=== PATIENT | female | born 1975 | race Caucasian/White ===

== ENCOUNTER 2019-03-31 16:21 | Observation (INO) | payer SELFPAY ==
[2019-03-31] MEDS ORDERED: PROMETHAZINE HCL 12.5 MG in 0.9 % SODIUM CHLORIDE 100ML 100 ML IVPB ONE (17:12)
[2019-03-31] MEDS ORDERED: LABETALOL HCL 5MG/ML, 20ML VIAL IV ONE ×2 (17:15→18:02)
[2019-03-31 17:30] LABS: ABSOLUTE NEUTROPHIL COUNT 4.21; BASO % 0.3 % (0-6); EOS % 0.7 % (0-6); GRAN % 59.9 % (47-80); HEMATOCRIT 44.8 % (35.0-47.0); LYMPH % 33.4 % (16-45); MEAN CELL VOLUME 98.9 fl (81-97); MEAN CORPUSCULAR HEMOGLOBIN 33.1 pg (27-33); MEAN CORPUSCULAR HGB CONC 33.5 g/dl (32-36); MONO % 5.7 % (0-9); PLATELET COUNT 243 K/uL (130-400); RED BLOOD COUNT 4.53 M/uL (3.80-5.40); RED CELL DISTRIBUTION WIDTH 12.9 % (11.5-14.5)
[2019-03-31 17:43] LABS: BLOOD UREA NITROGEN 5 mg/dL (6-20); CREATININE 0.6 mg/dL (0.5-0.9); EST GLOMERULAR FILTRATION RATE > 60 mL/min
[2019-03-31 17:46] LABS: GLUCOSE,RANDOM 84 mg/dL (74-109)
--- NOTE | 2019-03-31 18:28 | Emergency Department Record ---
History of Present Illness - General Chief Complaint: Dizziness Stated Complaint: VERTIGO Time Seen by Provider: 03/31/19 17:02 Source: Patient Mode of Arrival: Ambulatory Limitations: No limitations - History of Present Illness Initial Comments: pt came in for extreme vertigo and hypertension. she states [facility] and bp med but the meclizine is not working. she states she has no family dr because she has no insurance. she states she has had htn since she was 23. she has been vomiting up her meds because of her vertigo MD Complaint: Dizziness, Other Onset/Timin -: Week(s) Timing: Gradual onset Description: Difficulty walking, Lightheadedness, Nausea, "Room spinning", Sense of movement History of Same: Yes History of Trauma: No Severity: Severe Improves With: Nothing Worsens With: Movement, Position Associated Symptoms: Denies other symptoms - [place] Coma Scale Eye Response: (4) Open spontaneously Motor Response: (6) Obeys commands Verbal Response: (5) Oriented [place] Total: 15 - Symptoms of Stroke Symptoms of stroke: Dizziness, Vertigo - Related Data Home Medications Medication Instructions Recorded Confirmed Last Taken Amlodipine Besylate [Norvasc] 2.5 mg PO QHS 03/31/19 03/31/19 03/30/19 Atenolol 25 mg PO BID 03/31/19 03/31/19 03/31/19 Meclizine HCl [Antivert] 25 mg PO ASDIR 03/31/19 03/31/19 03/30/19 Allergies Allergy/AdvReac Type Severity Reaction Status Date / Time No Known Drug Allergies Allergy Verified 03/31/19 16:42 Travel Screening - Travel/Exposure Within Last 30 Days Have you traveled within the last 30 days?: No Review of Systems Reviewed: No additional complaints except as noted below Constitutional: Reports: As per HPI. Denies: Chills, Fever, Malaise, Night sweats, Weakness, Weight change Eyes: Reports: As per HPI. Denies: Eye discharge, Eye pain, Photophobia, Vision change ENT: Reports: As per HPI. Denies: Congestion, Dental pain, Ear pain, Epistaxis, Hearing loss, Throat pain Respiratory: Reports: As per HPI. Denies: Cough, Dyspnea, Hemoptysis, Stridor, Wheezes Cardiovascular: Reports: As per HPI. Denies: Arrhythmia, Chest pain, Dyspnea on exertion, Edema, Murmurs, Orthopnea, Palpitations, Paroxysmal nocturnal dyspnea, Rheumatic Fever, Syncope Endocrine: Reports: As per HPI. Denies: Fatigue, Heat or cold intolerance, Polydipsia, Polyuria Gastrointestinal: Reports: As per HPI. Denies: Abdominal pain, Constipation, Diarrhea, Hematemesis, Hematochezia, Melena, Nausea, Vomiting Genitourinary: Reports: As per HPI. Denies: Abnormal menses, Discharge, Dyspareunia, Dysuria, Frequency, Hematuria, Incontinence, Retention, Urgency Musculoskeletal: Reports: As per HPI. Denies: Arthralgia, Back pain, Gout, Joint swelling, Myalgia, Neck pain Skin: Reports: As per HPI. Denies: Bruising, Change in color, Change in hair/nails, Lesions, Pruritus, Rash Neurological: Reports: As per HPI, Vertigo. Denies: Abnormal gait, Confusion, Headache, Numbness, Paresthesias, Seizure, Tingling, Tremors, Weakness Psychiatric: Reports: As per HPI. Denies: Anxiety, Auditory hallucinations, Depression, Homicidal thoughts, Suicidal thoughts, Visual hallucinations Hematological/Lymphatic: Reports: As per HPI. Denies: Anemia, Blood Clots, Easy bleeding, Easy bruising, Swollen glands Past Medical History - SOCIAL HISTORY Smoking Status: Light tobacco smoker (<10/day) Alcohol Use Comment: daily-couple of drinks Drug Use: None - RESPIRATORY Hx Respiratory Disorders: No - CARDIOVASCULAR Hx Cardio Disorders: Yes Hx Hypertension: Yes Comment:: deviated septum, slightly enlarged heart, mitral valve prolapse - NEURO Hx Neuro Disorders: No - GI Hx GI Disorders: Yes Comment:: IBS - Hx Genitourinary Disorders: No - ENDOCRINE Hx Endocrine Disorders: No - MUSCULOSKELETAL Hx Musculoskeletal Disorders: No - PSYCH Hx Psych Problems: Yes Hx Anxiety: Yes (severe anxiety disorder) - HEMATOLOGY/ONCOLOGY Hx Hematology/Oncology Disorders: No Family Medical History Any Significant Family History?: No Physical Exam - General General Appearance: Alert, Oriented x3, Cooperative, Moderate distress - Head Head exam: Normal inspection - Eye Eye exam: PERRL, EOMI, Nystagmus Pupils: Normal accommodation - ENT ENT exam: Normal exam, Mucous membranes moist, Normal external ear exam, Normal orophraynx Ear exam: Normal external inspection. negative: External canal tenderness Nasal Exam: Normal inspection. negative: Discharge, Sinus tenderness Mouth exam: Normal external inspection, Tongue normal Teeth exam: Normal inspection. negative: Dental caries Throat exam: Normal inspection. negative: Tonsillar erythema, Tonsillar exudate - Neck Neck exam: Normal inspection, Full ROM. negative: Tenderness - Respiratory Respiratory exam: Normal lung sounds bilaterally. negative: Respiratory dis tress - Cardiovascular Cardiovascular Exam: Normal rhythm, Normal heart sounds, Tachycardia - GI/Abdominal GI/Abdominal exam: Soft, Normal bowel sounds. negative: Tenderness - Rectal Rectal exam: Deferred - exam: Deferred - Extremities Extremities exam: Normal inspection, Full ROM, Normal capillary refill. negative: Tenderness - Back Back exam: Reports: Normal inspection, Full ROM. Denies: Muscle spasm, Rash noted, Tenderness - Neurological Neurological exam: Alert, CN II-XII intact, Normal gait, Oriented X3 - Psychiatric Psychiatric exam: Normal affect, Normal mood - Skin Skin exam: Dry, Intact, Normal color, Warm Course Vital Signs 03/31/19 03/31/19 03/31/19 16:38 17:36 17:59 Temperature 98.1 F Pulse Rate 123 H Pulse Rate [ 95 H 90 Pulse Ox Probe] Respiratory 18 20 18 Rate Blood Pressure 242/162 Blood Pressure 217/150 195/132 [Left Arm] Pulse Ox 97 96 99 - Reevaluation(s) Reevaluation #1: 03/31/19 18:57 pts vertigo is better however her bp conts to be high. Reevaluation #2: 03/31/19 19:06 helio is putting in the hypertension meds. Medical Decision Making - Lab Data Result diagrams: 03/31/19 16:40 03/31/19 16:40 Lab Results 03/31/19 03/31/19 Range/Units 16:40 16:40 WBC 7.0 (4.2-12.2) K/uL RBC 4.53 (3.80-5.40) M/uL Hgb 15.0 (11.6-16.0) gm/dl Hct 44.8 (35.0-47.0) % MCV 98.9 H (81-97) fl MCH 33.1 H (27-33) pg MCHC 33.5 (32-36) g/dl RDW 12.9 (11.5-14.5) % Plt Count 243 (130-400) K/uL MPV 9.0 (7.4-10.4) fl Gran % 59.9 (47-80) % Lymphocytes % 33.4 (16-45) % Monocytes % 5.7 (0-9) % Eosinophils % 0.7 (0-6) % Basophils % 0.3 (0-6) % Absolute Neutrophils 4.21 Sodium 134 L (136-145) mmol/L Potassium 3.5 (3.4-4.5) mmol/L Chloride 90 L (98-107) mmol/L Carbon Dioxide 23.0 (22-29) mmol/L Anion Gap 21.0 H (7-16) BUN 5 L (6-20) mg/dL Creatinine 0.6 (0.5-0.9) mg/dL Estimated GFR > 60 mL/min Random Glucose 84 (74-109) mg/dL Calcium 9.9 (8.6-10.0) mg/dL Disposition Disposition: Admit Clinical Impression: Hypertensive urgency Disposition: Still a Patient at [facility] Decision to Admit: Admit from ER Decision to Admit Date: 03/31/19 Decision to Admit Time: 18:59 Forms: Patient Portal Access Quality - Quality Measures Quality Measures: N/A - Blood Pressure Screening Does Patient Have Any of the Following: No Blood Pressure Classification: Hypertensive Reading Systolic Measurement: 242 Diastolic Measurement: 162 Screening for High Blood Pressure: < First Hypertensive BP, F/U Documented > [G8950] First Hypertensive Follow-up Interventions: Referral to alternative/primary care provider.
--- NOTE | 2019-03-31 18:29 | Emergency Department Record ---
History of Present Illness - General Chief Complaint: Dizziness Stated Complaint: VERTIGO Time Seen by Provider: 03/31/19 17:02 Mode of Arrival: Ambulatory - History of Present Illness Onset/Timin -: Week(s) Timing: Gradual onset Description: Difficulty walking, Lightheadedness, Nausea, "Room spinning", Sense of movement History of Same: Yes History of Trauma: No Severity: Severe Improves With: Nothing Worsens With: Movement, Position Associated Symptoms: Denies other symptoms - [place] Coma Scale Eye Response: (4) Open spontaneously Motor Response: (6) Obeys commands Verbal Response: (5) Oriented [place] Total: 15 - Related Data Home Medications Medication Instructions Recorded Confirmed Last Taken Amlodipine Besylate [Norvasc] 2.5 mg PO QHS 03/31/19 03/31/19 03/30/19 Atenolol 25 mg PO BID 03/31/19 03/31/19 03/31/19 Meclizine HCl [Antivert] 25 mg PO ASDIR 03/31/19 03/31/19 03/30/19 Allergies Allergy/AdvReac Type Severity Reaction Status Date / Time No Known Drug Allergies Allergy Verified 03/31/19 16:42 Travel Screening - Travel/Exposure Within Last 30 Days Have you traveled within the last 30 days?: No Past Medical History - SOCIAL HISTORY Smoking Status: Light tobacco smoker (<10/day) Alcohol Use Comment: daily-couple of drinks Drug Use: None - RESPIRATORY Hx Respiratory Disorders: No - CARDIOVASCULAR Hx Cardio Disorders: Yes Hx Hypertension: Yes Comment:: deviated septum, slightly enlarged heart, mitral valve prolapse - NEURO Hx Neuro Disorders: No - GI Hx GI Disorders: Yes Comment:: IBS - Hx Genitourinary Disorders: No - ENDOCRINE Hx Endocrine Disorders: No - MUSCULOSKELETAL Hx Musculoskeletal Disorders: No - PSYCH Hx Psych Problems: Yes Hx Anxiety: Yes (severe anxiety disorder) - HEMATOLOGY/ONCOLOGY Hx Hematology/Oncology Disorders: No Family Medical History Any Significant Family History?: No Course Vital Signs 03/31/19 03/31/19 03/31/19 16:38 17:36 17:59 Temperature 98.1 F Pulse Rate 123 H Pulse Rate [ 95 H 90 Pulse Ox Probe] Respiratory 18 20 18 Rate Blood Pressure 242/162 Blood Pressure 217/150 195/132 [Left Arm] Pulse Ox 97 96 99 Medical Decision Making - Lab Data Result diagrams: 03/31/19 16:40 03/31/19 16:40 Lab Results 03/31/19 03/31/19 Range/Units 16:40 16:40 WBC 7.0 (4.2-12.2) K/uL RBC 4.53 (3.80-5.40) M/uL Hgb 15.0 (11.6-16.0) gm/dl Hct 44.8 (35.0-47.0) % MCV 98.9 H (81-97) fl MCH 33.1 H (27-33) pg MCHC 33.5 (32-36) g/dl RDW 12.9 (11.5-14.5) % Plt Count 243 (130-400) K/uL MPV 9.0 (7.4-10.4) fl Gran % 59.9 (47-80) % Lymphocytes % 33.4 (16-45) % Monocytes % 5.7 (0-9) % Eosinophils % 0.7 (0-6) % Basophils % 0.3 (0-6) % Absolute Neutrophils 4.21 Sodium 134 L (136-145) mmol/L Potassium 3.5 (3.4-4.5) mmol/L Chloride 90 L (98-107) mmol/L Carbon Dioxide 23.0 (22-29) mmol/L Anion Gap 21.0 H (7-16) BUN 5 L (6-20) mg/dL Creatinine 0.6 (0.5-0.9) mg/dL Estimated GFR > 60 mL/min Random Glucose 84 (74-109) mg/dL Calcium 9.9 (8.6-10.0) mg/dL Disposition Forms: Patient Portal Access Quality - Blood Pressure Screening Does Patient Have Any of the Following: No Blood Pressure Classification: Hypertensive Reading Systolic Measurement: 242 Diastolic Measurement: 162
--- NOTE | 2019-03-31 18:48 | CT SCAN REPORT ---
EXAMINATION: CT Head without IV Contrast EXAM DATE: 03/31/2019 6:38 PM TECHNIQUE: Standard protocol CT images of the head were obtained without intravenous contrast. Aviles l and sagittal reconstructed images were created. INDICATION: vertigo w htn COMPARISON: None HAND DOMINANCE: Unknown. ENCOUNTER: Not applicable FINDINGS: 1. There is no intracranial mass, midline shift, extraaxial fluid collection or hemorrhage. 2. The ventricles, sulci and cisterns are normal. 3. There are no suspicious area of altered attenuation. 4. There is no fracture. 5. The visualized aspects of the orbits, paranasal sinuses, and mastoid air cells are normal. IMPRESSION: 1. No acute intracranial process evident. Dictated by: Ricky Hardin DO on 03/31/2019 6:44 PM. .
--- NOTE | 2019-03-31 18:52 | RADIOLOGY REPORT ---
EXAMINATION: Two View Chest Radiographs EXAM DATE: 03/31/2019 6:38 PM TECHNIQUE: Frontal and lateral views INDICATION: Acute vertigo. Recent falls. Hypertension COMPARISON: None FINDINGS: 2 views. Clear lungs. No visible pneumothorax or pleural fluid. The heart and mediastinum have a norm al appearance. IMPRESSION: Normal chest views. Dictated by: Wilber Devine MD on 03/31/2019 6:49 PM. .
[2019-03-31] MEDS ORDERED: PROMETHAZINE HCL 12.5 MG in 0.9 % SODIUM CHLORIDE 100ML 100 ML IVPB PRN (19:56)
[2019-03-31] MEDS ORDERED: MECLIZINE 25 MG TABLET PO SCH (19:56)
[2019-03-31] MEDS ORDERED: ACETAMINOPHEN 500 MG TABLET PO PRN (19:56)
[2019-03-31] MEDS ORDERED: HYDRALAZINE 20MG/ML VIAL IV PRN (20:46)
[2019-03-31] MEDS ORDERED: LABETALOL HCL 5MG/ML, 20ML VIAL IV PRN (20:47)
[2019-03-31] MEDS ORDERED: LISINOPRIL 5 MG TABLET PO SCH (21:00)
[2019-03-31] MEDS ORDERED: AMLODIPINE BESYLATE 5MG TAB PO SCH (22:00)
[2019-03-31] MEDS ORDERED: ATENOLOL 25 MG TABLET PO SCH (22:00)
[2019-04-01 04:28] LABS: AMPHETAMINE SCREEN URINE NOT DETECTED; BARBITURATE SCREEN URINE NOT DETECTED; BENZODIAZEPINE SCREEN URINE NOT DETECTED; COCAINE SCREEN URINE NOT DETECTED; METHADONE SCREEN URINE NOT DETECTED; METHAMPHETAMINE SCREEN NOT DETECTED; OPIATE SCREEN URINE NOT DETECTED; OXYCODONE SCREEN URINE NOT DETECTED; PHENCYCLIDINE SCREEN URINE NOT DETECTED; PROPOXYPHENE SCREEN URINE NOT DETECTED; THC SCREEN URINE NOT DETECTED; TRICYCLIC ANTIDEPRESSANT SCRN NOT DETECTED
[2019-04-01] MEDS ORDERED: AMLODIPINE BESYLATE 5MG TAB PO SCH (10:00)
[2019-04-01] MEDS ORDERED: LISINOPRIL 20 MG TABLET PO SCH (10:00)
--- NOTE | 2019-04-01 10:50 | Discharge Summary ---
Providers Discharge Summary Date: 04/01/19 Date of admission: 03/31/19 19:51 Attending physician: CHARITO PELAEZ Physical Exam - Vital Signs Vital Signs: Vital Signs - Last 24 Hrs Temp Pulse Pulse Resp BP BP BP 04/01/19 09:00 87 18 04/01/19 08:00 99.1 F 87 18 139/101 04/01/19 04:00 98.8 F 96 H 16 128/89 04/01/19 01:58 99 H 16 116/87 04/01/19 00:26 83 18 125/75 03/31/19 23:54 91 H 16 128/78 03/31/19 22:51 89 197/125 03/31/19 21:48 98 H 191/127 03/31/19 20:29 102 H 03/31/19 20:10 87 203/131 03/31/19 20:05 88 209/133 03/31/19 20:00 98.1 F 96 H 18 182/148 03/31/19 19:09 95 H 18 169/122 03/31/19 18:34 91 H 18 199/139 03/31/19 17:59 90 18 195/132 03/31/19 17:36 95 H 20 217/150 03/31/19 16:38 98.1 F 123 H 18 242/162 Pulse Ox 04/01/19 09:00 04/01/19 08:00 97 04/01/19 04:00 96 04/01/19 01:58 99 04/01/19 00:26 98 03/31/19 23:54 96 03/31/19 22:51 03/31/19 21:48 03/31/19 20:29 03/31/19 20:10 03/31/19 20:05 03/31/19 20:00 96 03/31/19 19:09 98 03/31/19 18:34 99 03/31/19 17:59 99 03/31/19 17:36 96 03/31/19 16:38 97 - General General Appearance: Alert, Oriented x3, Cooperative, No acute distress Limitations: No limitations - Head Head exam: Normal inspection - Eye Eye exam: PERRL, EOMI, Nystagmus Pupils: Normal accommodation - ENT ENT exam: Normal exam, Mucous membranes moist, Normal external ear exam, Normal orophraynx Ear exam: Normal external inspection. negative: External canal tenderness Nasal Exam: Normal inspection. negative: Discharge, Sinus tenderness Mouth exam: Normal external inspection, Tongue normal Teeth exam: Normal inspection. negative: Dental caries Throat exam: Normal inspection. negative: Tonsillar erythema, Tonsillar exudate - Neck Neck exam: Normal inspection, Full ROM. negative: Tenderness - Respiratory Respiratory exam: Normal lung sounds bilaterally. negative: Respiratory distress - Cardiovascular Cardiovascular Exam: Normal rhythm, Normal heart sounds, Tachycardia - GI/Abdominal GI/Abdominal exam: Soft, Normal bowel sounds. negative: Tenderness - Rectal Rectal exam: Deferred - exam: Deferred - Extremities Extremities exam: Normal inspection, Full ROM, Normal capillary refill. negative: Tenderness - Back Back exam: Reports: Normal inspection, Full ROM. Denies: Muscle spasm, Rash noted, Tenderness - Neurological Neurological exam: Alert, CN II-XII intact, Normal gait, Oriented X3 - Psychiatric Psychiatric exam: Normal affect, Normal mood - Skin Skin exam: Dry, Intact, Normal color, Warm Hospitalization - Hospitalization Admission Diagnosis: hypertensive urgency, malignant hypertension - Problem List/Discharge Diagnosis (1) Hypertensive urgency Status: Acute Base Code: I16.0 - HYPERTENSIVE URGENCY Comment: 04/01/19 -BP 242/162 --> 139/101, HR 123 --> 87 -Labetalol 10mg x 2, Hydralazine 10mg, Lisinopril 5mg and Atenolol 25mg overnight -Stop Norvasc, Continue Atenolol 25mg PO BID and Lisinopril 20mg daily, #90 day supplies sent to pharmacy to assist with cost -Case Management consulted to set pt up with PCP (2) Dizziness Status: Acute Base Code: R42 - DIZZINESS AND GIDDINESS Comment: 04/01/19 -Improved -Continue Meclizine (3) DVT prophylaxis Status: Acute Base Code: Z29.9 - ENCOUNTER FOR PROPHYLACTIC MEASURES, UNSPECIFIED Comment: 04/01/19 -Low Risk -Nursing to encourage ambulation, with assistance d/t fall risk (4) Full code status Status: Acute Base Code: Z78.9 - OTHER SPECIFIED HEALTH STATUS Comment: 04/01/19 -Full code (5) Unwitnessed fall Status: Acute Base Code: R29.6 - REPEATED FALLS Comment: 04/01/19 -Unwitnessed fall in the middle of the night -Reported hx of multiple falls -NeuroChecks normal - Hospitalization Course Disposition: Home, Self-Care Hospital Course: Angeline Jules is a 43 y.o. F who presented to the [facility] ED on 03/31/19 with c/o extreme vertigo and high blood pressure. Reported that she has a hx of vertigo but that meclizine is not working, as it usually does. Has a hx of HTN and gets medications from [facility] but has to "ration" them to make them last longer. Does not have a family doctor or health insurance. Has been unable to keep her BP meds down today d/t vomiting from vertigo. PMHx: HTN, tobacco use, daily alcohol use, IBS, anxiety No PCP ED Course -Vitals: T 98.1, HR 123, BP 242/162, RR 18, SPO2 98% on RA -EKG: NSR with LVH -CXR: Negative -Head CT: No acute process -Labs: Unremarkable 04/01/19 1000 Vitals: T 99.1, HR 87, BP 139/101, RR 18, SPO2 97% on RA Pt was evaluated in her room, sitting up in bed, A&Ox3. Son in recliner at bedside and had been with her in the room all night. Pt reported that she had a fall in the bathroom in the middle of the night after she "got up without asking for help or using the call light". Reported that she didn't hit her head very hard, "more of a slide" on the wall. States "I Fall all the time". Neuro checks performed on the pt through the night by nursing staff was normal. Reported feeling much better today, no dizziness. When medication regimens were discussed, pt stated that she would like to stop Norvasc as it does cause for her to have lower leg swelling. Would like to continue Atenolol because it stops her from having heart palpitations. Doesn't have a PCP and has limited funds to pay for her medications. States that her son is going into the and that she should be able to get on his insurance as a "dependent". Procedures: Imaging and X-Rays 03/31/19 17:12 CHEST 2 VIEWS [RAD] Stat HEAD WO CONTRAST [CT] Stat Cardiology Procedures 03/31/19 17:12 EKG NOW Abnormal Labs: Abnormal Lab Results 03/31/19 03/31/19 Range/Units 16:40 16:40 MCV 98.9 H (81-97) fl MCH 33.1 H (27-33) pg Sodium 134 L (136-145) mmol/L Chloride 90 L (98-107) mmol/L Anion Gap 21.0 H (7-16) BUN 5 L (6-20) mg/dL Condition at Discharge: (1) Good Discharge Medications - Discharge Medications Prescriptions: Atenolol 25 mg PO BID #90 tablet Lisinopril 20 mg PO DAILY 90 Days #90 tablet Home Medications: Ambulatory Orders Meclizine HCl [Antivert] 25 mg PO ASDIR 03/31/19 [Last Taken 03/30/19] Acetaminophen [Tylenol 500Mg Tab] 1,000 mg PO Q6H PRN tablet 04/01/19 [Last Taken Unknown] Atenolol 25 mg PO BID #90 tablet 04/01/19 [Last Taken Unknown] Lisinopril 20 mg PO DAILY 90 Days #90 tablet 04/01/19 [Last Taken Unknown] Discharge Plan - Discharge Instructions Activity at Discharge: Increase Activity as Tolerated Instructions: Vertigo (DC), Hypertension (DC) Additional Instructions: Activity: TOLERATED Diet: TOLERATED Consults: [] Follow Up: [New patient appointment at [facility] with Ansley Valentino NP April 10 at 6:20pm. Please complete and bring new patient paperwork with you to appointment. Address: [address] [place] [address] ] Dressing/Wound Care: (Type) (Change) Additional: [] Quality Measures - Quality Measures Quality Measures: Documentation of Current Medications in Medical Record, Screening for High Blood Pressure and F/U Documented - Current Medications Quality Measure: Measure #130: Documentation of Current Medications Documentation of Current Medications: <Current Medications Documented/Reviewed> [G8427] - Blood Pressure Screening Quality Measure: Screening for High Blood Pressure and Follow-Up Documented Does Patient Have Any of the Following: Active Dx of HTN Blood Pressure Classification: Hypertensive Reading Systolic Measurement: 242 Diastolic Measurement: 162 Screening for High Blood Pressure: Patient Exclusion, Hx of HTN [G9744] - Elder Abuse Suspicion Index EASI Reference Information: Jorge GILL, Percy C, Muriel D, Kimberly Casey.Development and validation of a tool to assist physicians identification of elder abuse: The Elder Abuse Suspicion Index (EASI ). Journal of Elder Abuse and Neglect, 2008; 20 (3): 276-300.
--- NOTE | 2019-04-01 10:50 | History & Physical ---
History of Present Illness - Date of Service Date of Service for History & Physical: 04/01/19 - History of Present Illness Admitting Diagnosis: hypertensive urgency, malignant hypertension History of Present Illness: Angeline Jules is a 43 y.o. F who presented to the [facility] ED on 03/31/19 with c/o extreme vertigo and high blood pressure. Reported that she has a hx of vertigo but that meclizine is not working, as it usually does. Has a hx of HTN and gets medications from [facility] but has to "ration" them to make them last longer. Does not have a family doctor or health insurance. Has been unable to keep her BP meds down today d/t vomiting from vertigo. PMHx: HTN, tobacco use, daily alcohol use, IBS, anxiety No PCP ED Course -Vitals: T 98.1, HR 123, BP 242/162, RR 18, SPO2 98% on RA -EKG: NSR with LVH -CXR: Negative -Head CT: No acute process -Labs: Unremarkable 04/01/19 1000 Vitals: T 99.1, HR 87, BP 139/101, RR 18, SPO2 97% on RA Pt was evaluated in her room, sitting up in bed, A&Ox3. Son in recliner at bedside and had been with her in the room all night. Pt reported that she had a fall in the bathroom in the middle of the night after she "got up without asking for help or using the call light". Reported that she didn't hit her head very hard, "more of a slide" on the wall. States "I Fall all the time". Neuro checks performed on the pt through the night by nursing staff was normal. Reported feeling much better today, no dizziness. When medication regimens were discussed, pt stated that she would like to stop Norvasc as it does cause for her to have lower leg swelling. Would like to continue Atenolol because it stops her from having heart palpitations. Doesn't have a PCP and has limited funds to pay for her medications. States that her son is going into the and that she should be able to get on his insurance as a "dependent". Travel Screening - Travel/Exposure Within Last 30 Days Have you traveled within the last 30 days?: No - Travel/Exposure Within Last Year Have you traveled outside the [place] in the last year?: No - Additonal Travel Details Have you been exposed to anyone with a communicable illness?: No Review of Systems Reviewed: No additional complaints except as noted below Constitutional: Denies: Chills, Fever, Malaise, Night sweats, Weakness, Weight change Eyes: Denies: Eye discharge, Eye pain, Photophobia, Vision change ENT: Denies: Congestion, Dental pain, Ear pain, Epistaxis, Hearing loss, Throat pain Respiratory: Denies: Cough, Dyspnea, Hemoptysis, Stridor, Wheezes Cardiovascular: Reports: Palpitations. Denies: Arrhythmia, Chest pain, Dyspnea on exertion, Edema, Murmurs, Orthopnea, Paroxysmal nocturnal dyspnea, Rheumatic Fever, Syncope Endocrine: Denies: Fatigue, Heat or cold intolerance, Polydipsia, Polyuria Gastrointestinal: Denies: Abdominal pain, Constipation, Diarrhea, Hematemesis, Hematochezia, Melena, Nausea, Vomiting Genitourinary: Denies: Abnormal menses, Discharge, Dyspareunia, Dysuria, Frequency, Hematuria, Incontinence, Retention, Urgency Musculoskeletal: Denies: Arthralgia, Back pain, Gout, Joint swelling, Myalgia, Neck pain Skin: Denies: Bruising, Change in color, Change in hair/nails, Lesions, Pruritus, Rash Neurological: Reports: Vertigo. Denies: Abnormal gait, Confusion, Headache, Numbness, Paresthesias, Seizure, Tingling, Tremors, Weakness Psychiatric: Denies: Anxiety, Auditory hallucinations, Depression, Homicidal thoughts, Suicidal thoughts, Visual hallucinations Hematological/Lymphatic: Denies: Anemia, Blood Clots, Easy bleeding, Easy bruising, Swollen glands Past Medical History - SOCIAL HISTORY Smoking Status: Light tobacco smoker (<10/day) Alcohol Use: Occasional Alcohol Use Comment: 4 beers per day Drug Use: None - RESPIRATORY Hx Respiratory Disorders: No - CARDIOVASCULAR Hx Cardio Disorders: Yes Hx Hypertension: Yes Comment:: deviated septum, slightly enlarged heart, mitral valve prolapse - NEURO Hx Neuro Disorders: Yes Hx Dizziness: Yes - GI Hx GI Disorders: Yes Hx Irritable Bowel: Yes Comment:: IBS - Hx Genitourinary Disorders: No - ENDOCRINE Hx Endocrine Disorders: No - MUSCULOSKELETAL Hx Musculoskeletal Disorders: No - PSYCH Hx Psych Problems: Yes Hx Anxiety: Yes (severe anxiety disorder) - HEMATOLOGY/ONCOLOGY Hx Hematology/Oncology Disorders: No Family Medical History Any Significant Family History?: Yes Hx Cancer: Mother Hx Heart Disease: Father Hx HTN: Father H&P Meds/Allergies - Allergies Allergies: Allergies Allergy/AdvReac Type Severity Reaction Status Date / Time No Known Drug Allergies Allergy Verified 03/31/19 16:42 - Home Medications Home Medications Medication Instructions Recorded Confirmed Last Taken Meclizine HCl [Antivert] 25 mg PO ASDIR 03/31/19 03/31/19 03/30/19 Previous Rx's Medication Instructions Recorded Acetaminophen [Tylenol 500Mg Tab] 1,000 mg PO Q6H PRN tablet 04/01/19 Atenolol 25 mg PO BID #90 tablet 04/01/19 Lisinopril 20 mg PO DAILY 90 Days #90 tablet 04/01/19 - Active Medications Active Medications: Current Medications Acetaminophen (Tylenol 500mg Tab) 1,000 mg PO Q6H PRN PRN Reason: PAIN - MILD(1-4)/FEVER Amlodipine Besylate (Norvasc) 10 mg PO DAILY [facility] Last Admin: 04/01/19 09:37 Dose: 10 mg Documented by: Hydralazine HCl (Apresoline) 10 mg IV Q4H PRN PRN Reason: BLOOD PRESSURE Last Admin: 03/31/19 22:40 Dose: 10 mg Documented by: Promethazine HCl 12.5 mg/ (Sodium Chloride) 100.5 mls @ 200 mls/hr IVPB Q6H PRN PRN Reason: VERTIGO Labetalol HCl (Labetalol) 10 mg IV Q10M PRN PRN Reason: HYPERTENSIVE EMERGENCY Lisinopril (Zestril) 20 mg PO DAILY [facility] Last Admin: 04/01/19 09:37 Dose: 20 mg Documented by: Meclizine HCl (Antivert) 25 mg PO ASDIR [facility] Last Admin: 04/01/19 00:25 Dose: 25 mg Documented by: Physical Exam - Vital Signs Vital Signs: Vital Signs - Last 24 Hrs Temp Pulse Pulse Resp BP BP BP 04/01/19 09:00 87 18 04/01/19 08:00 99.1 F 87 18 139/101 04/01/19 04:00 98.8 F 96 H 16 128/89 04/01/19 01:58 99 H 16 116/87 04/01/19 00:26 83 18 125/75 03/31/19 23:54 91 H 16 128/78 03/31/19 22:51 89 197/125 03/31/19 21:48 98 H 191/127 03/31/19 20:29 102 H 03/31/19 20:10 87 203/131 03/31/19 20:05 88 209/133 03/31/19 20:00 98.1 F 96 H 18 182/148 03/31/19 19:09 95 H 18 169/122 03/31/19 18:34 91 H 18 199/139 03/31/19 17:59 90 18 195/132 03/31/19 17:36 95 H 20 217/150 03/31/19 16:38 98.1 F 123 H 18 242/162 Pulse Ox 04/01/19 09:00 04/01/19 08:00 97 04/01/19 04:00 96 04/01/19 01:58 99 04/01/19 00:26 98 03/31/19 23:54 96 03/31/19 22:51 03/31/19 21:48 03/31/19 20:29 03/31/19 20:10 03/31/19 20:05 03/31/19 20:00 96 03/31/19 19:09 98 03/31/19 18:34 99 03/31/19 17:59 99 03/31/19 17:36 96 03/31/19 16:38 97 - General General Appearance: Alert, Oriented x3, Cooperative, No acute distress Limitations: No limitations - Head Head exam: Normal inspection - Eye Eye exam: PERRL, EOMI Pupils: Normal accommodation - ENT ENT exam: Normal exam, Mucous membranes moist, Normal external ear exam, Normal orophraynx Ear exam: Normal external inspection. negative: External canal tenderness Nasal Exam: Normal inspection. negative: Discharge, Sinus tenderness Mouth exam: Normal external inspection, Tongue normal Teeth exam: Normal inspection. negative: Dental caries Throat exam: Normal inspection. negative: Tonsillar erythema, Tonsillar exudate - Neck Neck exam: Normal inspection, Full ROM. negative: Tenderness - Respiratory Respiratory exam: Normal lung sounds bilaterally. negative: Respiratory distress - Cardiovascular Cardiovascular Exam: Normal rhythm, Normal heart sounds, Tachycardia - GI/Abdominal GI/Abdominal exam: Soft, Normal bowel sounds. negative: Tenderness - Rectal Rectal exam: Deferred - exam: Deferred - Extremities Extremities exam: Normal inspection, Full ROM, Normal capillary refill. ne gative: Tenderness - Back Back exam: Reports: Normal inspection, Full ROM. Denies: Muscle spasm, Rash noted, Tenderness - Neurological Neurological exam: Alert, CN II-XII intact, Normal gait, Oriented X3 - Psychiatric Psychiatric exam: Normal affect, Normal mood - Skin Skin exam: Dry, Intact, Normal color, Warm Results - Labs Result Diagrams: 03/31/19 16:40 03/31/19 16:40 Labs Last 24 Hours: Laboratory Results - last 24 hr 03/31/19 03/31/19 04/01/19 16:40 16:40 04:15 WBC 7.0 RBC 4.53 Hgb 15.0 Hct 44.8 MCV 98.9 H MCH 33.1 H MCHC 33.5 RDW 12.9 Plt Count 243 MPV 9.0 Gran % 59.9 Lymphocytes % 33.4 Monocytes % 5.7 Eosinophils % 0.7 Basophils % 0.3 Absolute Neutrophils 4.21 Sodium 134 L Potassium 3.5 Chloride 90 L Carbon Dioxide 23.0 Anion Gap 21.0 H BUN 5 L Creatinine 0.6 Estimated GFR > 60 Random Glucose 84 Calcium 9.9 Urine Opiates Screen Not detected Ur Oxycodone Screen Not detected Urine Methadone Screen Not detected Ur Propoxyphene Screen Not detected Ur Barbituates Screen Not detected Ur Tricyclics Screen Not detected Ur Phencyclidine Scrn Not detected Ur Amphetamine Screen Not detected U Methamphetamines Scrn Not detected U Benzodiazepines Scrn Not detected Urine Cocaine Screen Not detected Urine Cannabis Screen Not detected VTE H&P Assessment - Risk for VTE Risk for VTE: No Risk Level: Very Low Risk Assessment Date: 04/01/19 Risk Assessment Time: 10:00 VTE Orders Placed or Will Be Placed: No VTE Reason for No Prophylaxis: Not Indicated Plan - Detailed Diagnosis and Plan (1) Hypertensive urgency Status: Acute Base Code: I16.0 - HYPERTENSIVE URGENCY Comment: 04/01/19 -BP 242/162 --> 139/101, HR 123 --> 87 -Labetalol 10mg x 2, Hydralazine 10mg, Lisinopril 5mg and Atenolol 25mg overnight -Start Norvasc 10mg and Lisinopril 20mg daily -Case Management consulted to set pt up with PCP (2) Unwitnessed fall Status: Acute Base Code: R29.6 - REPEATED FALLS Comment: 04/01/19 -Unwitnessed fall in the middle of the night -Reported hx of multiple falls -NeuroChecks normal (3) Dizziness Status: Acute Base Code: R42 - DIZZINESS AND GIDDINESS Comment: 04/01/19 -Improved -Continue Meclizine (4) DVT prophylaxis Status: Acute Base Code: Z29.9 - ENCOUNTER FOR PROPHYLACTIC MEASURES, UNSPECIFIED Comment: 04/01/19 -Low Risk -Nursing to encourage ambulation, with assistance d/t fall risk (5) Full code status Status: Acute Base Code: Z78.9 - OTHER SPECIFIED HEALTH STATUS Comment: 04/01/19 -Full code
== END 2019-04-01 12:55 | disposition home or self-care (01) ==
LOC: ER 16:21 → MEDSURG 19:51 → INTOOBSV 19:51
PROVIDERS: ADMIT Internal Medicine; ATTEND Internal Medicine
DX: I16.1 Hypertensive emergency (principal); I10 Essential (primary) hypertension; R11.0 Nausea; I34.1 Nonrheumatic mitral (valve) prolapse; K58.8 Other irritable bowel syndrome; F41.8 Other specified anxiety disorders; F17.210 Nicotine dependence, cigarettes, uncomplicated; R29.6 Repeated falls
CPT/HCPCS: 70450; 71046; 80048; 80305; 85025; 93005; 93010; 96365; 96366; 96374; 99220; 99285; J2550

== ENCOUNTER 2019-04-20 12:23 | Emergency (ER) | payer SELFPAY ==
--- NOTE | 2019-04-20 12:45 | Emergency Department Record ---
History of Present Illness - General Chief Complaint: Dizziness Stated Complaint: DIZZINESS Time Seen by Provider: 04/20/19 12:29 Source: Patient, Family Mode of Arrival: Ambulatory Limitations: No limitations - History of Present Illness Initial Comments: 43 yo female presents with dizziness, falls, headache. She reports she has had "vertigo" since 2016. Over the last several months the symptoms have been worse. She was seen and admitted to [facility] on 04/01/19 for dizziness and elevated blood pressure. She reports she was doing better at [place]. She has been very dizzy nearly constantly one week. On Monday she became dizzy and fell hitting her frontal forehead. She has been more dizzy with nausea and headaches since then. No fever. She has taken Meclizine throughout the week with no improvement. HCT on 03/31/19 was negative. She has not had any follow up to this point in time but she is scheduled 04/29 with a new PCP. She denies vision loss, ringing in the ears, unilateral weakness. She does have bilateral hand tingling at times. She does admit to alcohol use 3-4 drinks most days of the week. MD Complaint: Dizziness, Difficulty walking Onset/Timin -: Days(s) Timing: Gradual onset Description: Difficulty walking, Off-balance, Sense of movement History of Same: Yes History of Trauma: Yes Improves With: Nothing Worsens With: Nothing Associated Symptoms: Other (Nausea, headache) - Mignon Coma Scale Eye Response: (4) Open spontaneously Motor Response: (6) Obeys commands Verbal Response: (5) Oriented [place] Total: 15 - Related Data Previous Rx's Medication Instructions Recorded Acetaminophen [Tylenol 500Mg Tab] 1,000 mg PO Q6H PRN tablet 04/01/19 Atenolol 25 mg PO BID #90 tablet 04/01/19 Lisinopril 20 mg PO DAILY 90 Days #90 tablet 04/01/19 Allergies Allergy/AdvReac Type Severity Reaction Status Date / Time No Known Drug Allergies Allergy Verified 04/20/19 12:31 Travel Screening - Travel/Exposure Within Last 30 Days Have you traveled within the last 30 days?: No Review of Systems Constitutional: Denies: Chills, Fever, Malaise, Weakness Eyes: Denies: Eye discharge, Eye pain, Photophobia, Vision change ENT: Reports: Dental pain (chronic on the right). Denies: Congestion, Throat pain Respiratory: Denies: Cough, Dyspnea Cardiovascular: Denies: Chest pain, Palpitations, Syncope Endocrine: Denies: Fatigue Gastrointestinal: Reports: Nausea. Denies: Abdominal pain, Diarrhea, Vomiting Genitourinary: Denies: Dysuria, Urgency Musculoskeletal: Denies: Arthralgia, Back pain, Joint swelling, Myalgia, Neck pain Skin: Denies: Bruising, Change in color, Rash Neurological: Reports: Abnormal gait, Headache, Tingling, Vertigo. Denies: Numbness, Weakness Psychiatric: Reports: Anxiety Hematological/Lymphatic: Denies: Easy bleeding, Easy bruising Past Medical History - SOCIAL HISTORY Smoking Status: Light tobacco smoker (<10/day) Alcohol Use: Heavy Drug Use: None - RESPIRATORY Hx Respiratory Disorders: No - CARDIOVASCULAR Hx Cardio Disorders: Yes Hx Hypertension: Yes Comment:: deviated septum, slightly enlarged heart, mitral valve prolapse - NEURO Hx Neuro Disorders: Yes Hx Dizziness: Yes - GI Hx GI Disorders: Yes Hx Irritable Bowel: Yes Comment:: IBS - Hx Genitourinary Disorders: No - ENDOCRINE Hx Endocrine Disorders: No - MUSCULOSKELETAL Hx Musculoskeletal Disorders: No - PSYCH Hx Psych Problems: Yes Hx Anxiety: Yes (severe anxiety disorder) - HEMATOLOGY/ONCOLOGY Hx Hematology/Oncology Disorders: No Family Medical History Any Significant Family History?: Yes Hx Cancer: Mother Hx Heart Disease: Father Hx HTN: Father Physical Exam - General General Appearance: Alert, Oriented x3, Cooperative Limitations: No limitations - Head Head exam: negative: Atraumatic Head exam detail: Contusion (mild mid anterior forehead tenderness and swelling) - Eye Eye exam: Normal appearance, PERRL, EOMI. negative: Conjunctival injection, Nystagmus - ENT ENT exam: Normal exam, Mucous membranes moist, Normal orophraynx Ear exam: Normal external inspection Nasal Exam: Normal inspection Mouth exam: Normal external inspection - Neck Neck exam: Normal inspection. negative: Meningismus, Tenderness - Respiratory Respiratory exam: Normal lung sounds bilaterally - Cardiovascular Cardiovascular Exam: Regular rate, Normal rhythm, Normal heart sounds Peripheral Pulses: 2+: Radial (R), Radial (L) - Rectal Rectal exam: Deferred - exam: Deferred - Extremities Extremities exam: Normal inspection - Back Back exam: Denies: CVA tenderness (R), CVA tenderness (L) - Neurological Neurological exam: Abnormal gait, Alert, CN II-XII intact, Oriented X3, Other (Abnormal [place]omberg with instability, normal FTN, Normal ISABEL, independent walking but unsteady, no tremor). negative: Altered, Motor sensory deficit, Normal gait - Psychiatric Psychiatric exam: negative: Agitated, Anxious - Skin Skin exam: Dry, Intact, Normal color, Warm Course Vital Signs 04/20/19 12:27 Temperature 98.6 F Pulse Rate 114 H Respiratory 20 Rate Blood Pressure 180/135 Pulse Ox 100 - Reevaluation(s) Reevaluation #1: The CBC was reviewed No acute abnormalities The CMP was reviewed The HCO3 was 20 The AG is 20 TBili is 2.1 AST is 92 ALT 39 Alk Phos is 68 Normal renal function 04/20/19 13:35 Thiamine with MVI added due to admission of chronic, significant alcohol use 04/20/19 13:43 The HCT is unchanged from 03/31/19. No new traumatic or ischemic changes. 04/20/19 13:44 BP improved to 163/106 04/20/19 13:52 The patient is not improved I recommend transfer and further work up [facility] was contacted 04/20/19 15:26 The patient was accepted by Dr Janes Gutierrez The patient insists on going by private car. 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 I explained risk of falling given her dizziness. I will have her sign AMA regarding an understanding that this is a risk that she is taking. She understands this risk and will sign the form. Medical Decision Making - Lab Data Result diagrams: 04/20/19 12:50 04/20/19 12:50 Disposition Disposition: Transfer Clinical Impression: Dizziness, Alcohol use Hypertension Qualifiers: Hypertension type: unspecified Qualified Code(s): I10 - Essential (primary) hypertension Disposition: Acute Care Hospital Transfer Transfer To: [facility] Reason For Transfer: Intractable dizziness Accepting Physician: Janes Gutierrez Time Discussed w/Accepting Physician: 15:28 Condition: (2) Stable Instructions: Against Medical Advice (ED) Forms: Patient Portal Access Time of Disposition: 15:28 Quality - Quality Measures Quality Measures: N/A - Blood Pressure Screening Does Patient Have Any of the Following: Active Dx of HTN Blood Pressure Classification: Hypertensive Reading Systolic Measurement: 158 Diastolic Measurement: 110 Screening for High Blood Pressure: Patient Exclusion, Hx of HTN [[id number]]
[2019-04-20] MEDS ORDERED: ONDANSETRON HCL IV 4 MG/2 ML VIAL IVP ONE (12:46)
[2019-04-20] MEDS ORDERED: MECLIZINE 25 MG TABLET PO ONE (12:46)
[2019-04-20] MEDS ORDERED: THIAMINE HCL IV 100 MG, MVI, ADULT NO.4 WITH VIT K 10 ML in POTASSIUM CHL 20MEQ IN 1L N... IV ONE ×3 (12:52)
[2019-04-20 13:02] LABS: BASO % 0.3 % (0-6); EOS % 0.4 % (0-6); HEMATOCRIT 43.1 % (35.0-47.0); MEAN CELL VOLUME 100.2 fl (81-97); MEAN CORPUSCULAR HEMOGLOBIN 32.5 pg (27-33); MEAN CORPUSCULAR HGB CONC 32.5 g/dl (32-36); MEAN PLATELET VOLUME 8.9 fl (7.4-10.4); MONO % 8.3 % (0-9); PLATELET COUNT 303 K/uL (130-400); RED CELL DISTRIBUTION WIDTH 13.4 % (11.5-14.5); WHITE BLOOD COUNT W/O DIFF 6.9 K/uL (4.2-12.2)
[2019-04-20 13:11] LABS: BLOOD UREA NITROGEN 9 mg/dL (6-20)
[2019-04-20 13:12] LABS: CREATININE 0.9 mg/dL (0.5-0.9); EST GLOMERULAR FILTRATION RATE > 60 mL/min; TOTAL PROTEIN 8.1 g/dL (6.6-8.7)
[2019-04-20 13:14] LABS: GLUCOSE,RANDOM 72 mg/dL (74-109)
[2019-04-20 13:17] LABS: ALB/GLOB RATIO 1.5 (1.1-1.8); ALBUMIN 4.9 g/dL (4.0-5.0); ALKALINE PHOSPHATASE 68 U/L (35-104); ALT/SGPT 39 U/L (<33); AST/SGOT 92 U/L (10.0-35.0)
[2019-04-20 13:28] LABS: THYROID STIMULATING HORMONE 4.94 uIU/mL (0.270-4.20)
[2019-04-20] MEDS ORDERED: MVI, ADULT NO.4 WITH VIT K 10 ML, THIAMINE HCL IV 100 MG in 0.9 % SODIUM CHLORIDE 1000M... IV SCH ×3 (13:30)
--- NOTE | 2019-04-20 13:34 | CT SCAN REPORT ---
EXAMINATION: CT Head without IV Contrast EXAM DATE: 04/20/2019 1:18 PM TECHNIQUE: Standard protocol CT images of the head were obtained without intravenous contrast. Aviles l and sagittal reconstructed images were created. INDICATION: dizziness, fall, hit head on monday COMPARISON: 03/31/2019 HAND DOMINANCE: Unknown. ENCOUNTER: Not applicable FINDINGS: 1. There is no intracranial mass, midline shift, extraaxial fluid collection or hemorrhage. Hypodens ity in the region of the right transverse dural venous sinus similar compared to prior exam and sugge stive of an arachnoid granulation. 2. The ventricles, sulci and cisterns are normal. 3. There are no suspicious area of altered attenuation. 4. There is no fracture. 5. The visualized aspects of the orbits, paranasal sinuses, and mastoid air cells are normal. IMPRESSION: 1. No acute intracranial process evident. Dictated by: Ricky Hardin DO on 04/20/2019 1:29 PM. .
== END 2019-04-20 15:40 | disposition short-term general hospital (02) ==
LOC: ER 12:23
DX: R42 Dizziness and giddiness (principal); R51 Headache; R20.2 Paresthesia of skin; R26.2 Difficulty in walking, not elsewhere classified; R11.0 Nausea; I10 Essential (primary) hypertension; F17.210 Nicotine dependence, cigarettes, uncomplicated; Z72.89 Other problems related to lifestyle; Z91.81 History of falling
CPT/HCPCS: 99285 ×2; 96365; 96366; 96375; 85025; 80053; 84443; 70450; J2405; J3411; J7030